=== PATIENT | female | born 1945 | race Two or more races ===

== ENCOUNTER 2024-02-13 09:32 | Emergency (ER) | payer MEDICARE, OTHER ==
[~2024-02-13] VITALS: Ht 170.2 cm; Wt 60.0 kg
[2024-02-13 09:49] VITALS: BP 131/77; PULSE 76; RESP 16; TEMP 97.8; O2SAT 94
[2024-02-13] MEDS ORDERED: FLUT16SP NASAL (10:07)
[2024-02-13] MEDS ORDERED: ALEN35TA41 PO (10:07)
[2024-02-13] MEDS ORDERED: ATOR10TA PO (10:07)
[2024-02-13] MEDS ORDERED: AMLO-257 PO (10:07)
[2024-02-13] MEDS ORDERED: ASPI81TA87 PO (10:07)
== END 2024-02-13 10:30 | disposition home or self-care (01) ==
LOC: EMS 09:32
DX: R42 Dizziness and giddiness (principal); E78.00 Pure hypercholesterolemia, unspecified; I10 Essential (primary) hypertension
CPT/HCPCS: 93005; 99284; Z7502